=== PATIENT | female | born 1955 | race African-American/Black ===

== ENCOUNTER 2021-11-04 06:03 | Day surgery (SDC) | payer OTHER ==
[2021-11-02 16:42] VITALS: BMI 42.3
[2021-11-04] MEDS ORDERED: MIDAZOLAM HCL 2 MG/2 ML SINGLE DOSE VIAL ONE (06:50)
[2021-11-04] MEDS ORDERED: ROPIVACAINE HCL/PF 100 MG/20 ML VIAL ONE ×2 (06:50→06:53)
[2021-11-04] MEDS ORDERED: PROPOFOL 20 ML ONE ×2 (07:16)
[2021-11-04] MEDS ORDERED: SUCCINYLCHOLINE CHLORIDE 200 MG/10 ML SYRINGE ONE (07:17)
[2021-11-04] MEDS ORDERED: EPINEPHrine 1:1,000 1 MG/1 ML - 30ML VIAL (INJECTION) ONE ×3 (07:44→11:52)
[2021-11-04] MEDS ORDERED: ePHEDrine SULFATE 50 MG/1 ML AMPULE ONE ×2 (08:16→08:49)
[2021-11-04] MEDS ORDERED: DEXAMETHASONE SOD PHOSPHATE 4 MG/1 ML VIAL ONE (08:56)
[2021-11-04] MEDS ORDERED: ONDANSETRON 4 MG/2 ML VIAL ONE (08:56)
[2021-11-04] MEDS ORDERED: VANCOMYCIN 1,000 MG VIAL (RESTRICTED TO ID ONLY) ONE (10:45)
[2021-11-04] MEDS ORDERED: KETOROLAC TROMETHAMINE 30 MG/1 ML VIAL ONE (11:21)
[2021-11-04] MEDS ORDERED: DESFLURANE GAS 240 ML BOTTLE IH ONE (11:41)
[2021-11-04] MEDS ORDERED: ONDANSETRON 4 MG/2 ML VIAL IVPUSH PRN (12:23)
[2021-11-04] MEDS ORDERED: oxyCODONE HCL 5 MG TABLET PO PRN ×2 (12:23)
[2021-11-04 14:35] VITALS: TEMP 97.8
[2021-11-04 16:20] VITALS: BP 121/75; PULSE 76
== END 2021-11-04 16:00 | disposition home or self-care (01) ==
LOC: FASU 06:03
PROVIDERS: ATTEND Orthopaedic Surgery Sports Medicine
PROC: 0LS34ZZ Reposition Right Upper Arm Tendon, Percutaneous Endoscopic Approach (ICD-10-PCS; 2021-11-04)
PROC: 0RQJ4ZZ Repair Right Shoulder Joint, Percutaneous Endoscopic Approach (ICD-10-PCS; 2021-11-04)
PROC: 0LQ14ZZ Repair Right Shoulder Tendon, Percutaneous Endoscopic Approach (ICD-10-PCS; principal; 2021-11-04 08:54)
DX: M75.121 Complete rotator cuff tear or rupture of right shoulder, not specified as traumatic (principal); M75.21 Bicipital tendinitis, right shoulder; M19.011 Primary osteoarthritis, right shoulder
CPT/HCPCS: 94760